=== PATIENT | male | born 1960 | race Caucasian/White ===

== ENCOUNTER 2024-05-16 09:10 | Outpatient (CLI) | payer MEDICARE ==
[~2024-05-16 09:10] MED LIST: iohexol 350MG/ML 100ml bottle IV ONE
[2024-05-16 10:04] LABS: ANION GAP 5 (8-16); BLOOD UREA NITROGEN 21 MG/DL (7-18); BUN/CREATININE RATIO 21.4 (10.0-20.0); CALCIUM 8.9 MG/DL (8.5-10.1); CHLORIDE 105 MMOL/L (99-107); CREATININE 0.98 MG/DL (0.60-1.10); GLUCOSE 109 MG/DL (70-104); POTASSIUM 4.5 MMOL/L (3.5-5.1); SODIUM 138 MMOL/L (135-145); TOTAL CARBON DIOXIDE 28.4 MMOL/L (24-32); eGFR 78 ML/MIN
[2024-05-16 10:05] LABS: ALBUMIN 3.8 G/DL (3.4-5.0)
== END 2024-05-16 23:59 | disposition home or self-care (01) ==
LOC: RAD 09:10
PROVIDERS: ATTEND Internal Medicine Interventional Cardiology
DX: I65.23 Occlusion and stenosis of bilateral carotid arteries (principal)
CPT/HCPCS: 36415; 70498; 80048; Q9967

== ENCOUNTER 2024-09-04 12:53 | Emergency (ER) | payer MEDICARE ==
[~2024-09-04] VITALS: Ht 167.6 cm; Wt 62.6 kg
[2024-09-04 12:55] VITALS: TEMP 98.4
[2024-09-04 14:44] LABS: BASOPHILS # (AUTO) 0.1 X10'3 (0-0.2); BASOPHILS % (AUTO) 0.7 % (0-1); EOSINOPHILS # (AUTO) 0.2 X10'3 (0-0.9); EOSINOPHILS % (AUTO) 1.8 % (0-6); HEMATOCRIT 43.8 % (42.0-52.0); LYMPHOCYTES # (AUTO) 2.1 X10'3 (1.1-4.8); LYMPHOCYTES % (AUTO) 23.4 % (21-51); MEAN CORPUSCULAR HEMOGLOBIN 32.4 PG (27.0-31.0); MEAN CORPUSCULAR HGB CONC 34.2 g/dL (33.0-36.5); MEAN CORPUSCULAR VOLUME 94.7 FL (78-98); MEAN PLATELET VOLUME 7.5 FL (7.4-10.4); MONOCYTES # (AUTO) 1.1 X10'3 (0-0.9); MONOCYTES % (AUTO) 12.5 % (2-12); NEUTROPHILS # (AUTO) 5.4 X10'3 (1.8-7.7); NEUTROPHILS % (AUTO) 61.6 % (42-75); PLATELET COUNT 234 X10'3 (140-440); RED BLOOD COUNT 4.63 X10'6 (4.70-6.10); WHITE BLOOD COUNT 8.8 X10'3 (4.5-11.0)
[2024-09-04 15:13] LABS: ALANINE AMINOTRANSFERASE 27 U/L (12-78); ALBUMIN/GLOBULIN RATIO 1.1 (1.1-1.5); ALKALINE PHOSPHATASE 112 IU/L (46-116); ANION GAP 6 (8-16); ASPARTATE AMINO TRANSFERASE 21 U/L (10-37); BILIRUBIN,TOTAL 0.4 MG/DL (0.1-1.0); BLOOD UREA NITROGEN 13 MG/DL (7-18); BUN/CREATININE RATIO 14.6 (10.0-20.0); CALCIUM 9.3 MG/DL (8.5-10.1); CHLORIDE 104 MMOL/L (99-107); CREATININE 0.89 MG/DL (0.60-1.10); GLUCOSE 101 MG/DL (70-104); POTASSIUM 4.2 MMOL/L (3.5-5.1); SODIUM 140 MMOL/L (135-145); TOTAL CARBON DIOXIDE 30.5 MMOL/L (24-32); TOTAL PROTEIN 7.5 G/DL (6.4-8.2); eCRCL 76 ML/MIN; eGFR 87 ML/MIN
[2024-09-04] MEDS: CefTRIAXone 2gm/D5W 50ml BAG 50 ML IV ONE (18:17)
[2024-09-04] MEDS ORDERED: CEPH-585 PO (18:36)
[2024-09-04 19:40] VITALS: BP 143/99; PULSE 91; RESP 16; O2SAT 98
== END 2024-09-04 19:43 | disposition home or self-care (01) ==
LOC: ER 12:53
DX: L03.116 Cellulitis of left lower limb (principal); I73.9 Peripheral vascular disease, unspecified
CPT/HCPCS: 36415; 80053; 83605; 84145; 85025; 93926; 93971; 96365; 99285; J0696

== ENCOUNTER → 2024-11-04 | Day surgery (SDC) | payer MEDICARE ==
[~2024-11-04] MED LIST changes: +ASPI-1265 PO; +DOCU-149 PO; +LISI20TA28 PO; +MELA1TAB52 PO; +NAPR-1115 PO; +NAPR220C62 PO; +OXYC1TAB17 PO; +RIVA2.5T PO; +ROSU10TA72 PO; -iohexol 350MG/ML 100ml bottle IV ONE
== END | disposition home or self-care (01) ==
LOC: SSTAY O 10:59
PROVIDERS: ATTEND Family Medicine
DX: I73.9 Peripheral vascular disease, unspecified (principal)
CPT/HCPCS: 36569; 76942; C1751

== ENCOUNTER 2024-11-06 07:19 | Emergency (ER) | payer MEDICARE ==
[~2024-11-06] VITALS: Ht 167.6 cm; Wt 61.0 kg
[2024-11-06] MEDS: LORazepam 0.5 MG tablet PO ONE (07:57)
[2024-11-06 10:29] VITALS: BP 116/98; PULSE 106; RESP 16; TEMP 98.2; O2SAT 100
== END 2024-11-06 10:30 ==
LOC: ER 07:20
DX: S81.812D Laceration without foreign body, left lower leg, subsequent encounter (principal); Z48.00 Encounter for change or removal of nonsurgical wound dressing; Z79.82 Long term (current) use of aspirin; W22.03XD Walked into furniture, subsequent encounter
CPT/HCPCS: 99283; A6258